=== PATIENT | female | born 1945 | race Caucasian/White ===

== ENCOUNTER 2018-05-31 08:51 | Outpatient (CLI) | payer MEDICARE, OTHER ==
--- NOTE | 2018-06-01 14:10 | Mammography Report ---
Reason: BILAT SCREEN w DULCE Procedure Date: 05/31/2018 Accession Number: [id number] / [id number] Procedure: ROBERTO - Screening Mammo w/Dulce CPT Code: FULL RESULT: EXAM: Screening Mammo w/Dulce DATE: 05/31/2018 9:53 AM CLINICAL HISTORY: 73-year-old female with family history of breast cancer in a sister at age 47 and aunt in her 70s. TECHNIQUE: Bilateral CC and MLO views were obtained. COMPARISON: 11/06/2015, 04/14/2011. FINDINGS: The breasts demonstrate scattered fibroglandular densities bilaterally. 2 cm from the left nipple in the 11:00 position is a 8 mm mass with associated microcalcifications which requires additional imaging views including spot magnification and ultrasound of the left breast. No suspicious masses, clustered microcalcifications, or regions of architectural distortion are identified. IMPRESSION: Incomplete examination RECOMMENDATION: Additional evaluation as above. BIRADS CATEGORY 2: Benign findings STANDARD QUALIFYING STATEMENTS: 1. This examination was not reviewed with the aid of Computer-Aided Detection (CAD). 2. A negative or benign imaging report should not delay biopsy if clinically suspicious findings are present. Consider surgical consultation if warrented. More than 5% of cancers are not identified by imaging. 3. Dense breasts may obscure an underlying neoplasm. 4. This examination was reviewed with the aid of 3D breast imaging (tomosynthesis).
== END 2018-05-31 08:52 | disposition home or self-care (01) ==
LOC: DI 08:51
PROVIDERS: ATTEND Internal Medicine
DX: Z12.31 Encounter for screening mammogram for malignant neoplasm of breast (principal); Z80.3 Family history of malignant neoplasm of breast
CPT/HCPCS: 77063; 77067

== ENCOUNTER 2018-06-20 08:39 | Outpatient (CLI) | payer MEDICARE, OTHER ==
--- NOTE | 2018-06-20 10:17 | Ultrasound Report ---
Reason: ABNORMAL MAMMO LT BREAST Procedure Date: 06/20/2018 Accession Number: [id number] / [id number] Procedure: US - Breast Unilateral Limited CPT Code: FULL RESULT: EXAM: Diag Special Views Dig LT, Breast Unilateral Limited DATE: 06/20/2018 9:09 AM CLINICAL HISTORY: Follow-up abnormal mammogram left breast. ADDITIONAL VIEWS LEFT BREAST TECHNIQUE: Additional true lateral and magnification views left breast. COMPARISON: 05/31/2018, 11/06/2015 and 04/14/2011 FINDINGS: The density described on the prior mammogram report persists on additional views. No definite calcifications are seen. TARGETED LEFT BREAST ULTRASOUND TECHNIQUE: Real-time scanning by the maintenance construction helper of the left breast upper outer quadrant periareolar region with saved static images reviewed. FINDINGS: Corresponding to the mammographic abnormality is a 5 x 6 x 7 mm solid complex vascular mass in the 1:00 position 2 cm from the nipple. IMPRESSION: Suspicious abnormality. RECOMMENDATION: Ultrasound-guided core biopsy left breast. BIRADS CATEGORY 4: Suspicious Results communicated to Dr. Bonilla 10:05 AM 06/20/2018. STANDARD QUALIFYING STATEMENTS: 1. This examination was reviewed with the aid of Computer-Aided Detection (CAD). 2. A negative or benign imaging report should not delay biopsy if clinically suspicious findings are present. Consider surgical consultation if warrented. More than 5% of cancers are not identified by imaging. 3. Dense breasts may obscure an underlying neoplasm.
== END 2018-06-20 08:40 | disposition home or self-care (01) ==
LOC: DI 08:39
PROVIDERS: ATTEND Internal Medicine
DX: N63.21 Unspecified lump in the left breast, upper outer quadrant (principal)
CPT/HCPCS: 76642

== ENCOUNTER 2018-06-29 12:12 | Outpatient (CLI) | payer MEDICARE, OTHER ==
[2018-06-29] MEDS ORDERED: BUFFERED LIDOCAINE 10 ML SYRINGE IU ONE (14:19)
[2018-06-29] MEDS ORDERED: BUPIVACAINE 0.5%-EPI 1:200000 PF 10 ML VIAL SUBQ ONE (14:24)
--- NOTE | 2018-06-29 15:25 | Ultrasound Report ---
Reason: ABN MAMMO - LEFT BREAST NODULE Procedure Date: 06/29/2018 Accession Number: [id number] / [id number] Procedure: US - Biopsy Breast Core CPT Code: FULL RESULT: PROCEDURE: Ultrasound-guided needle biopsy left breast mass. CLINICAL DATA: Targeted mass measuring 0.7 cm with irregular margins in the 1 o'clock axis of the left breast. Informed consent was obtained. Using standard aseptic technique, both 1% buffered lidocaine and Sensorcaine were injected into the left breast for local anesthesia. A small shari was made in the skin with a #11 blade. A 12-gauge [employer] vacuum-assisted device was used to obtain 4 specimens. A specialized biopsy marker clip was placed into the biopsy cavity under ultrasound guidance. The patient was taken to separate mammography machine and a two-view digital mammography was performed to verify the clip placement and any complications. The mammography showed concordant clip placement. The wound was dressed and ice applied. The patient was observed for approximately 15 minutes, then was discharged from diagnostic imaging Department in good condition following instructions on wound care and obtaining biopsy results. The patient is scheduled to receive the biopsy results from the referring physician. The tissue was sent for histologic analysis. IMPRESSION: Ultrasound-guided biopsy of the left breast. AN ADDENDUM WILL BE MADE TO THIS REPORT WHEN PATHOLOGY IS REVIEWED TO ESTABLISH CONCORDANCE.
== END 2018-06-29 12:13 | disposition home or self-care (01) ==
LOC: DI 12:12
PROVIDERS: ATTEND Internal Medicine
DX: C50.412 Malignant neoplasm of upper-outer quadrant of left female breast (principal); Z17.0 Estrogen receptor positive status [ER+]
CPT/HCPCS: 19083

== ENCOUNTER 2018-07-31 10:24 | Outpatient (CLI) | payer MEDICARE, OTHER ==
[2018-07-31] MEDS ORDERED: GADOBUTROL 10 MMOL/10 ML VIAL ONE (11:02)
[2018-07-31] MEDS ORDERED: GADOBUTROL 10 MMOL/10 ML VIAL IVP ONE (12:23)
--- NOTE | 2018-07-31 13:15 | XRAY Report ---
Reason: ELEVATED BLOOD-PRESSURE READING, W/O DIAGNOSIS OF Procedure Date: 07/31/2018 Accession Number: [id number] / [id number] Procedure: XR - Chest 2 View X-Ray CPT Code: 85345 FULL RESULT: EXAM: CHEST RADIOGRAPHY EXAM DATE: 07/31/2018 10:35 AM. CLINICAL HISTORY: Elevated blood-pressure reading, w/o diagnosis of. COMPARISON: None. TECHNIQUE: 2 views. FINDINGS: Lungs/Pleura: No focal opacities evident. No pleural effusion. No pneumothorax. Normal volumes. Mediastinum: Heart and mediastinal contours are unremarkable. Other: None. IMPRESSION: No acute cardiopulmonary abnormality. RADIA
--- NOTE | 2018-08-03 09:02 | MRI Report ---
Reason: BREAST CANCER Procedure Date: 07/31/2018 Accession Number: [id number] / [id number] Procedure: MRI - Breast Bilateral W/WO Contrast CPT Code: FULL RESULT: EXAM: Breast Bilateral W/WO Contrast DATE: 07/31/2018 12:27 PM CLINICAL HISTORY: Breast cancer diagnosed by biopsy. Examination purposes for staging and resection planning. TECHNIQUE: Using a dedicated breast coil, axial precontrast STIR, T1, dynamic postcontrast axial 3-D images, axial 3-D high resolution images, and postcontrast diffusion weighted images were obtained. 8.5 mL GADAVIST gadolinium-based contrast was administered intravenously. COMPARISON: Previous mammograms and ultrasound exams of the breast dating back to 11/06/2015. FINDINGS: In the region of the known cancer is a small focus of artifact likely related to the biopsy clip. The area of asymmetric enhancement in this region measures 2.9 cm AP by 1.5 cm transverse and extends for 3.5 cm in craniocaudal dimension with the patient in the prone position and breasts oriented by gravity. The biopsy cavity with masslike enhancement resides 0.9 cm caudal to the clip and the epicenter of asymmetric nodular regional enhancement lies approximately 3 cm caudal to the clip. No definitely abnormal-appearing lymph nodes are identified. IMPRESSION: Left breast cancer with suspicious asymmetric enhancement of surrounding glandular parenchyma as described. RECOMMENDATION: Surgical excision to encompass the region described in detail above. BIRADS: 6 known malignancy. Comment: Breast MRI is a highly sensitive examination, and has a cancer detection threshold down to approximately 5 mm; however, it only has moderate specificity. Normal-appearing lymph nodes may contain microscopic tumor. Due to prone positioning, the described location of findings may differ from other modalities.
== END 2018-07-31 10:25 | disposition home or self-care (01) ==
LOC: DI 10:24
PROVIDERS: ATTEND Internal Medicine Gastroenterology
DX: C50.912 Malignant neoplasm of unspecified site of left female breast (principal); R03.0 Elevated blood-pressure reading, without diagnosis of hypertension; R94.31 Abnormal electrocardiogram [ECG] [EKG]
CPT/HCPCS: 71046; 93005; A9585; C8908; 77059

== ENCOUNTER 2018-08-14 09:48 | Day surgery (SDC) | payer MEDICARE, OTHER ==
[2018-08-14] MEDS ORDERED: ceFAZolin 2 GM/50 ML 0 GM/0 ML BAG IV ONE (09:55)
[2018-08-14 10:19] VITALS: BP 153/87
[2018-08-14] MEDS ORDERED: LACTATED RINGERS 1,000 ML IV ONE (10:30)
--- NOTE | 2018-08-14 10:41 | ANESTHESIA ---
Pre-Anesthesia VS, & Labs - Diagnosis Breast CA - Procedure L sent. node dissection/L breast lumpectomy Vital Signs: Temp Pulse Resp BP Pulse Ox 36.2 C L 71 16 153/87 H 98 08/14/18 10:16 08/14/18 10:16 08/14/18 10:16 08/14/18 10:16 08/14/18 10:16 Last Vital Signs Temp 36.2 C L 08/14/18 10:16 Pulse 71 08/14/18 10:16 Resp 16 08/14/18 10:16 BP 153/87 H 08/14/18 10:16 Pulse Ox 98 08/14/18 10:16 Height 5 ft 8 in Weight (kg) 79 kg Body Mass Index 26.9 Height 5 ft 8 in Weight (kg) 79 kg Body Mass Index 26.9 - Is Patient ?: No - Lab Results Lab results reviewed: Yes Home Medications and Allergies Home Medications: Ambulatory Orders Amlodipine Besylate [Norvasc] 2.5 mg PO DAILY 08/11/18 Amlodipine Besylate [Norvasc] 2.5 mg PO DAILY 08/11/18 Allergies/Adverse Reactions: Allergies Allergy/AdvReac Type Severity Reaction Status Date / Time latex Allergy Rash Verified 08/01/18 13:10 Sulfa (Sulfonamide Allergy Rash Verified 08/01/18 13:10 Antibiotics) Anes History & Medical History - Medical History Cardiovascular: reports: None Pulmonary: reports: None Gastrointestinal: reports: None Urinary: reports: None Neuro: reports: None Musculoskeletal: reports: None Endocrine/Autoimmune: reports: None Blood Disorders: reports: None Skin: reports: None Smoking Status: Never smoker - Surgical History General: Other Eyes Ears Nose Throat (EENT): Tonsil/Adenoidectomy Plan Anesthesia Type: General (case cancelled/delayed d/t finding new lesion on MRI r equiring biopsyprior to surgery) Consent for Procedure(s) Verified and Reviewed: Yes Code Status: Attempt Resuscitation ASA classification: 3-Severe systemic disease Is this case an emergency?: No
--- NOTE | 2018-08-14 13:11 | PROVIDER PROGRESS NOTE ---
Subjective - Prog Note Date Prog Note Date: 08/14/18 Prog Note Time: 13:08 - Subjective Pt reports feeling: No change Objective - Vital Signs/Intake & Output Reviewed Vital Signs: Yes Vital Signs: Vital Signs x48h Temp Pulse Resp BP Pulse Ox 08/14/18 10:16 36.2 C L 71 16 153/87 H 98 - Objective General Appearance: positive: No acute distress, Alert - Diagnostic Imaging Diagnostic Imaging Results: positive: Final report reviewed, Discussed with radiologist Diagnostic Imaging Comments: During the pre procedural review of the MRI by Dr. Floyd Bernard, radiologist, he felt that the imaging revealed two distinct lesions rather than one lesion, and that the new, second lesion should be biopsied before proceeding with definitive surgical therapy. If the second lesion turns out to be malignant, then a multifocal malignancy would be present, which would require further discussion regarding possible mastectomy as a preferred modality of surgical therapy. This was discussed with the patient, who is in agreement with postponing the surgery and proceeding with image guided biopsy of the second lesion. Assessment/Plan - Problem List (1) Breast cancer Impression: presenting as abnormal mammogram; Rec: definitive surgery is pending evaluation of new, second lesion seen today on MRI. Qualifiers: Breast location: upper outer quadrant of breast Estrogen receptor status: positive Patient sex: female Laterality: left Qualified Code(s): C50.412 - Malignant neoplasm of upper-outer quadrant of left female breast; Z17.0 - Estrogen receptor positive status [ER+] (2) Abnormal MRI, breast Impression: New finding; unclear etiology; if cancer will like change surgical approach. Plan image guided biopsy of this second lesion, then f/u in office and revise surgical plans as appropriate. Discussed with patient who agrees.
[2018-08-14] MEDS ORDERED: BUFFERED LIDOCAINE 10 ML SYRINGE IU ONE (17:06)
--- NOTE | 2018-08-14 17:20 | Ultrasound Report ---
Reason: biopsy new abnormality noted on MRI left breast Procedure Date: 08/14/2018 Accession Number: [id number] / [id number] Procedure: US - Biopsy Breast Core CPT Code: FULL RESULT: EXAM: Biopsy Breast Core DATE: 08/14/2018 4:57 PM CLINICAL HISTORY: Biopsy abnormality noted on MRI left breast with retrospective mammographic correlate. Patient was initially scheduled for wire localization procedure. Per standard protocol, preprocedural imaging was reviewed. Review of the MRI was remarkable for biopsy-proven malignancy at 1:00 left breast and an additional 8 mm enhancing mass in the 3:00 breast, 4 cm from nipple and 2.5 cm distant from the biopsy-proven malignancy. Imaging and localization options were discussed with Dr. Magdiel Huang, who then discussed with the patient. After discussion, it was decided to pursue a second core needle biopsy at 3:00 rather than proceed with the planned needle localization. TECHNIQUE: Informed consent was obtained. Preprocedural scanning was performed of the left breast 3:00 4 cm from nipple demonstrating sonographic correlate to MRI enhancement/retrospective mammographic correlate measuring 8 mm in size (hypoechoic, irregular, indistinct and angular margins, mildly hypervascular). Skin site was prepped and draped in usual sterile fashion. Skin and deeper tissues were anesthetized with 10 cc of lidocaine. A small dermatotomy was made in the skin and 13-gauge guiding coaxial needle was advanced into position. Through this outer guide, a 14-gauge core biopsy system was utilized to obtain 3 core biopsies with each pass confirmed through the sonographic abnormality. A top-hat shaped clip was placed at the biopsy site. Instruments were removed and hemostasis was achieved. Site was sterilely dressed and bandaged. Postprocedural mammogram shows the clip to be in expected position in the 3:00 breast and the new top-hat clip is is 28 mm from the biopsy-proven malignancy at 1:00, marked with a barrel shaped clip. COMPARISON: MRI breast 07/31/2018 and mammograms and ultrasounds dating back to 04/14/2011. IMPRESSION: Successful ultrasound-guided biopsy of 8 mm mass 3:00, 4 cm from nipple left breast. Final recommendations are pending results of this histology.
--- NOTE | 2018-08-15 06:58 | Mammography Report ---
Reason: POST BIOPSY CLIP FILMS Procedure Date: 08/14/2018 Accession Number: [id number] / [id number] Procedure: ROBERTO - Diag Special Views Dig LT CPT Code: FULL RESULT: EXAM: Biopsy Breast Core DATE: 08/14/2018 4:57 PM CLINICAL HISTORY: Biopsy abnormality noted on MRI left breast with retrospective mammographic correlate. Patient was initially scheduled for wire localization procedure. Per standard protocol, preprocedural imaging was reviewed. Review of the MRI was remarkable for biopsy-proven malignancy at 1:00 left breast and an additional 8 mm enhancing mass in the 3:00 breast, 4 cm from nipple and 2.5 cm distant from the biopsy-proven malignancy. Imaging and localization options were discussed with Dr. Magdiel Huang, who then discussed with the patient. After discussion, it was decided to pursue a second core needle biopsy at 3:00 rather than proceed with the planned needle localization. TECHNIQUE: Informed consent was obtained. Preprocedural scanning was performed of the left breast 3:00 4 cm from nipple demonstrating sonographic correlate to MRI enhancement/retrospective mammographic correlate measuring 8 mm in size (hypoechoic, irregular, indistinct and angular margins, mildly hypervascular). Skin site was prepped and draped in usual sterile fashion. Skin and deeper tissues were anesthetized with 10 cc of lidocaine. A small dermatotomy was made in the skin and 13-gauge guiding coaxial needle was advanced into position. Through this outer guide, a 14-gauge core biopsy system was utilized to obtain 3 core biopsies with each pass confirmed through the sonographic abnormality. A top-hat shaped clip was placed at the biopsy site. Instruments were removed and hemostasis was achieved. Site was sterilely dressed and bandaged. Postprocedural mammogram shows the clip to be in expected position in the 3:00 breast and the new top-hat clip is is 28 mm from the biopsy-proven malignancy at 1:00, marked with a barrel shaped clip. COMPARISON: MRI breast 07/31/2018 and mammograms and ultrasounds dating back to 04/14/2011. IMPRESSION: Successful ultrasound-guided biopsy of 8 mm mass 3:00, 4 cm from nipple left breast. Final recommendations are pending results of this histology
== END 2018-08-14 09:49 | disposition home or self-care (01) ==
LOC: SDS 09:48
PROVIDERS: ATTEND Internal Medicine Gastroenterology
PROC: 0HBU3ZX Excision of Left Breast, Percutaneous Approach, Diagnostic (ICD-10-PCS; principal; 2018-08-14)
DX: C50.412 Malignant neoplasm of upper-outer quadrant of left female breast (principal); Z17.0 Estrogen receptor positive status [ER+]; Z80.3 Family history of malignant neoplasm of breast; Z78.0 Asymptomatic menopausal state
CPT/HCPCS: 19083; 77065; J7120

== ENCOUNTER 2018-09-11 08:24 | Day surgery (SDC) | payer MEDICARE, OTHER ==
[2018-09-11] MEDS ORDERED: LACTATED RINGERS 1,000 ML IV ONE ×2 (09:00→15:58)
[2018-09-11] MEDS ORDERED: SODIUM CHLORIDE FLUSH 0.9% 10 ML SYRINGE ONE (09:08)
--- NOTE | 2018-09-11 09:35 | ANESTHESIA ---
Pre-Anesthesia VS, & Labs - Is Patient ?: No <Jose A Russell - Last Filed: 09/11/18 13:41> - NPO >8 hours, Other (Water at 0630) - Is Patient ?: No - Lab Results Lab results reviewed: Yes <Black Moise - Last Filed: 09/11/18 15:03> - Diagnosis L Breast CA, DCIS (Jose A Russell) L Breast CA, DCIS (Black Moise) - Procedure L axillary sentinel node biopsy, L breast lumpectomy(x2) following needle loc. (Jose A Russell) L axillary sentinel node biopsy, L breast lumpectomy(x2) following needle loc. (Black Moise) Vital Signs: Temp Pulse Resp BP Pulse Ox 36.4 C L 69 16 147/82 H 99 09/11/18 08:40 09/11/18 08:40 09/11/18 08:40 09/11/18 08:40 09/11/18 08:40 Last Vital Signs Temp 36.4 C L 09/11/18 08:40 Pulse 69 09/11/18 08:40 Resp 16 09/11/18 08:40 BP 147/82 H 09/11/18 08:40 Pulse Ox 99 09/11/18 08:40 (Jose A Russell) Last Vital Signs Temp 36.4 C L 09/11/18 08:40 Pulse 69 09/11/18 08:40 Resp 16 09/11/18 08:40 BP 147/82 H 09/11/18 08:40 Pulse Ox 99 09/11/18 08:40 (Black Moise) Height 5 ft 7 in Weight (kg) 78.2 kg Body Mass Index 26.6 Home Medications and Allergies <Jose A Russell - Last Filed: 09/11/18 13:41> <Black Moise - Last Filed: 09/11/18 15:03> Amlodipine Besylate [Norvasc] 2.5 mg PO DAILY 08/11/18 Allergies/Adverse Reactions: Allergies Allergy/AdvReac Type Severity Reaction Status Date / Time latex Allergy Rash Verified 08/25/18 16:15 Sulfa (Sulfonamide Allergy Rash Verified 08/25/18 16:15 Antibiotics) Anes History & Medical History - Medical History Cardiovascular: reports: Hypertension Pulmonary: reports: None Gastrointestinal: reports: None Urinary: reports: None Neuro: reports: None Musculoskeletal: reports: None Endocrine/Autoimmune: reports: None Blood Disorders: reports: None Skin: reports: None Smoking Status: Never smoker - Surgical History General: Other Eyes Ears Nose Throat (EENT): Tonsil/Adenoidectomy <Jose A Russell - Last Filed: 09/11/18 13:41> - Anesthetic History Anesthesia Complications: reports: No previous complications Family history of Anesthesia Complications: Denies Family history of Malignant Hyperthermia: Denies - Medical History Psychosocial: reports: No issues indicated <Black Moise - Last Filed: 09/11/18 15:03> Exam General: Alert, Oriented x3 Dental: WNL Mouth Opening: Greater than 4 Fingerbreadths Neck Mobility: Normal Mallampati classification: II Respiratory: Lungs clear Cardiovascular: Regular rate Mental/Cognitive Status: Alert/Oriented X3 Cognitive Status: Within normal limits <Black Moise - Last Filed: 09/11/18 15:03> Plan Anesthesia Type: General Consent for Procedure(s) Verified and Reviewed: Yes Code Status: Attempt Resuscitation ASA classification: 2-Mild systemic disease Is this case an emergency?: No <Black Moise - Last Filed: 09/11/18 15:03>
[2018-09-11] MEDS ORDERED: LIDOCAINE 1%-EPI 1:100000 30 ML MDV ONE (11:11)
[2018-09-11] MEDS ORDERED: BUPIVACAINE 0.5% PF 30 ML VIAL ONE (11:11)
--- NOTE | 2018-09-11 12:18 | Nuclear Medicine Report ---
Reason: L BREAST CANCER Procedure Date: 09/11/2018 Accession Number: [id number] / [id number] Procedure: NM - Lymph Node Scintigraphy CPT Code: FULL RESULT: EXAM: SENTINEL LYMPH NODE RADIOTRACER INJECTION WITH IMAGING EXAM DATE: 09/11/2018 10:39 AM. CLINICAL HISTORY: 73-year-old female with breast cancer, undergoing a preoperative procedure. COMPARISON: None. TECHNIQUE: The injection site of the left breast was cleansed according to protocol. Next, a total of 0.53 mCi Tc-99m filtered sulfur colloid in saline was injected into the same site. After appropriate delay, the patient was imaged according to the protocol. FINDINGS: Images show a single focus of radiotracer accumulation in the left axilla. The patient tolerated the procedure well. IMPRESSION: 1. [place] lymph node injection, without complication. 2. Single focus in the left axilla, compatible with sentinel lymph node. RADIA ADDENDUM: 09/11/18 12:38 On further review, the small focus of radiotracer accumulation is located more medial than expected for the left axilla, in the upper inner quadrant region of the left breast and posterior to the periareolar injection site. This might be an intramammary lymph node or an internal mammary chain lymph node.
[2018-09-11] MEDS ORDERED: BUFFERED LIDOCAINE 10 ML SYRINGE IU ONE (14:02)
[2018-09-11] MEDS ORDERED: LIDOCAINE 1%-EPI 1:100000 20 ML MDV SUBQ ONE (15:53)
[2018-09-11] MEDS ORDERED: BUPIVACAINE 0.5% PF 30 ML VIAL INFIL ONE (15:56)
[2018-09-11] MEDS ORDERED: ACETAMINOPHEN 1,000 MG/100 ML 100 ML IV ONE (16:33)
[2018-09-11] MEDS ORDERED: fentaNYL 100 MCG/2 ML VIAL IVP ONE (16:33)
[2018-09-11] MEDS ORDERED: SODIUM CHLORIDE 0.9% 10 ML VIAL IV ONE (16:33)
[2018-09-11] MEDS ORDERED: DEXAMETHASONE 4 MG/ML VIAL IVP ONE (16:33)
[2018-09-11] MEDS ORDERED: ePHEDrine 50 MG/ML AMP IVP ONE (16:33)
[2018-09-11] MEDS ORDERED: MIDAZOLAM 2 MG/2 ML VIAL IVP ONE (16:33)
[2018-09-11] MEDS ORDERED: ONDANSETRON 4 MG/2 ML VIAL IVP ONE (16:33)
[2018-09-11] MEDS ORDERED: KETOROLAC 30 MG/ML VIAL IVP ONE (16:33)
[2018-09-11] MEDS ORDERED: PROPOFOL 200 MG/20 ML VIAL IVP ONE (16:33)
[2018-09-11] MEDS ORDERED: LIDOCAINE-MPF 2% 5 ML VIAL IM ONE (16:33)
--- NOTE | 2018-09-11 17:11 | Ultrasound Report ---
Reason: evaluate possible sentinel lymph node left breast Procedure Date: 09/11/2018 Accession Number: [id number] / [id number] Procedure: US - Breast Unilateral Limited CPT Code: FULL RESULT: EXAM: Left Breast Unilateral Limited Ultrasound DATE: 09/11/2018 1:32 PM CLINICAL HISTORY: evaluate location sentinel lymph node left breast TECHNIQUE: Real-time scanning by the fashion director with me present. COMPARISON: [place] lymph node examination earlier today. FINDINGS/IMPRESSION: In the area of increased tracer uptake in the 1:00 position left breast 10 cm from the nipple a 1.4 x 0.4 x 1.1 cm lymph node is confirmed. BI-RADS 6: KNOWN MALIGNANCY
[2018-09-11] MEDS ORDERED: ACETAMINOPHEN 325 MG TABLET PO PRN (17:12)
[2018-09-11] MEDS ORDERED: ONDANSETRON 4 MG/2 ML VIAL IVP PRN (17:12)
[2018-09-11] MEDS ORDERED: IBUPROFEN 600 MG TABLET PO PRN (17:12)
--- NOTE | 2018-09-11 17:28 | Mammography Report ---
Reason: LT BREAST CA Procedure Date: 09/11/2018 Accession Number: [id number] / [id number] Procedure: ROBERTO - Wire Loc Addl Lesion CPT Code: 01508 FULL RESULT: EXAM: Wire Localization LT, Wire Loc Addl Lesion DATE: 09/11/2018 11:19 AM CLINICAL HISTORY: LT BREAST CA COMPARISON: 05/31/2018, 06/20/2018, 06/29/2018, 07/31/2018, 08/14/2018 FINDINGS: Informed consent was obtained from the patient. A lateral to medial approach was chosen. The 2 previously placed left upper outer quadrant biopsy clips were targeted. Using sterile technique 1% lidocaine was injected for local anesthesia. A 7 cm modified Kopan's wire was used to localize the barrel-shaped biopsy clip and a 5 cm modified Kopan's wire was used to localize the top hat clip. Postprocedure mammogram demonstrates appropriate positioning of the localization wires with respect to the clips. The patient tolerated the procedure well and left the mammography suite in good condition. Specimen radiograph confirms the presence of both biopsy clips and localization wires. IMPRESSION: Successful mammography guided wire localization of 2 biopsy clips upper outer left breast. BI-RADS 6: Known malignancy
--- NOTE | 2018-09-11 17:28 | Mammography Report ---
Reason: LT BREAST CA Procedure Date: 09/11/2018 Accession Number: [id number] / [id number] Procedure: ROBERTO - Wire Localization LT CPT Code: 84724 FULL RESULT: EXAM: Wire Localization LT, Wire Loc Addl Lesion DATE: 09/11/2018 11:19 AM CLINICAL HISTORY: LT BREAST CA COMPARISON: 05/31/2018, 06/20/2018, 06/29/2018, 07/31/2018, 08/14/2018 FINDINGS: Informed consent was obtained from the patient. A lateral to medial approach was chosen. The 2 previously placed left upper outer quadrant biopsy clips were targeted. Using sterile technique 1% lidocaine was injected for local anesthesia. A 7 cm modified Kopan's wire was used to localize the barrel-shaped biopsy clip and a 5 cm modified Kopan's wire was used to localize the top hat clip. Postprocedure mammogram demonstrates appropriate positioning of the localization wires with respect to the clips. The patient tolerated the procedure well and left the mammography suite in good condition. Specimen radiograph confirms the presence of both biopsy clips and localization wires. IMPRESSION: Successful mammography guided wire localization of 2 biopsy clips upper outer left breast. BI-RADS 6: Known malignancy
--- NOTE | 2018-09-11 17:31 | Mammography Report ---
Reason: LT BREAST CA Procedure Date: 09/11/2018 Accession Number: [id number] / [id number] Procedure: ROBERTO - Breast Specimen Surgical CPT Code: FULL RESULT: EXAM: Breast Specimen Surgical DATE: 09/11/2018 5:16 PM CLINICAL HISTORY: LT BREAST CA COMPARISON: Post wire localization images performed earlier the same day. FINDINGS/ IMPRESSION: The specimen radiograph confirms the presence of both biopsy clips and localization wires within the specimen.
[2018-09-11] MEDS ORDERED: oxyCODONE 5 MG TABLET PO PRN (18:00)
[2018-09-11 18:03] VITALS: BP 130/67
[2018-09-11] MEDS ORDERED: oxyCODONE 5 MG TABLET ONE (18:08)
--- NOTE | 2018-09-12 04:29 | OPERATIVE REPORT ---
DATE OF SERVICE: 09/11/2018 Physician: Magdiel Huang MD PREOPERATIVE DIAGNOSES 1. Invasive ductal carcinoma of the left breast. 2. Ductal carcinoma in situ of the left breast. POSTOPERATIVE DIAGNOSES 1. Invasive ductal carcinoma of the left breast. 2. Ductal carcinoma in situ of the left breast. PROCEDURE 1. Left breast lumpectomy following needle localization x 2. 2. Left axillary sentinel lymph node biopsy. 3. Injection of methylene blue dye for sentinel lymph node mapping and biopsy. SURGEON: Magdiel Huang MD FACS [employer] WORKER: None ANESTHESIA TYPE/PROVIDER: General endotracheal by Jose A Russell CRNA. ESTIMATED BLOOD LOSS: 25 mL COMPLICATIONS: None. FINDINGS: Exploration of the left axilla revealed a solitary, hot, blue 10 mm lymph node in the mid left axilla with a timed count of 17,000. No other hot or blue lymph nodes were identified in the axilla. Specimen mammography confirmed the presence of both mammographic abnormalities, together with the marking clips and the localizing wires within the operative specimen. Grossly, the exposed visible breast tissue had a normal appearance. INDICATIONS: Patient is a 73-year-old woman who was noted to have an abnormal left mammogram with a cluster of microcalcifications in the upper outer quadrant, concerning for possible malignancy. Image-guided biopsy confirmed invasive ductal carcinoma, usual type, HR positive, HER-2/patricia negative. Subsequent evaluation of the MRI showed a second lesion. Image-guided biopsy of the second lesion revealed DCIS. Since both lesions were thought to be within 2.5 cm of each other and the lesions were thought amenable to breast conservation therapy and patient was interested in breast conservation therapy, patient was advised to undergo left breast lumpectomy x2 following needle localization and left axillary sentinel lymph node biopsy as part of her breast- conservation therapy. TECHNIQUE: After informed consent and preoperative needle localization x2 and lymphoscintigraphy with identification was thought to be a left axillary sentinel lymph node, patient was taken to the operating room where she was placed under general endotracheal anesthesia. Preoperative preparation also included application of sequential calf compression boots and administration of 2 grams of cefazolin intravenously within an hour of the incision. Her left breast was prepped with alcohol, following which approximately 1 mL of methylene blue was injected in 4 aliquots intradermally around the edges of the nipple- areola complex. This area was then massaged for 5 minutes, following which the left breast and axilla were prepared with ChloraPrep solution and draped in the usual sterile fashion. Using the Idalia counter probe, a location in the mid left axilla was identified overlying the suspected sentinel lymph node. A transverse incision approximately 2 to 2.5 cm in length was made overlying this area and carried down into subcutaneous tissues. Hemostasis achieved with electrocautery and with the LigaSure device. The incision was carried down into the axillary space, where careful dissection identified several blue lymphatic channels, which were followed until a blue lymph node approximately 10 mm in diameter against the chest wall was identified and seen to be radioactive. This lymph node was excised with the LigaSure device. A timed count was obtained, as noted above. The lymph node was sent for pathologic evaluation as sentinel lymph node #1. Interrogation of the axilla with the Idalia counter showed no additional hot areas, and visible exploration in the immediate vicinity of the excised node showed no additional blue lymph nodes. After hemostasis was ensured, the wound was irrigated with saline solution, following which wound closure was accomplished in layers using interrupted 3-0 Vicryl to reapproximate the axillary fascia and 4-0 Monocryl subcuticular skin closure. Attention was then turned towards the lumpectomy. Two localizing wires were seen to exit the breast, one in the 3 o'clock position and the other in the 4 o'clock position. A radial incision was made beginning from the edge of the nipple-areola complex, outward and downward, approximately 5 cm in length in between the 2 exit sites of the wire. Skin flaps were raised circumferentially. The wires were brought out through the incision. It was felt that the lesions were close enough together to be able to be excised in a single specimen, and this was performed using electrocautery to dissect around the suspected location of both lesions with gross margins of at least one centimeter down to the chest wall. The resulting specimen was then oriented using the margin map and then sent for specimen mammography and then pathology. Specimen mammography findings were as noted above. After hemostasis was ensured, the wound was copiously irrigated with saline solution, following which the incision was closed in a single layer with a single layer of 4-0 Monocryl subcuticular skin closure, followed by Dermabond to both surgical sites. Anesthesia was terminated and patient was transferred to the recovery room in satisfactory condition. Sponge and needle counts were correct x2. No drains were used. TD: 09/11/2018 18:00 MELA
== END 2018-09-11 08:25 | disposition home or self-care (01) ==
LOC: DI 08:24
PROVIDERS: ATTEND Internal Medicine Gastroenterology
PROC: 0HBU0ZZ Excision of Left Breast, Open Approach (ICD-10-PCS; principal; 2018-09-11 11:00)
PROC: 07B60ZX Excision of Left Axillary Lymphatic, Open Approach, Diagnostic (ICD-10-PCS; 2018-09-11 11:00)
DX: C50.412 Malignant neoplasm of upper-outer quadrant of left female breast (principal); Z17.0 Estrogen receptor positive status [ER+]; I10 Essential (primary) hypertension
CPT/HCPCS: 19281; 19282; 19301; 38525; 38900; 76098; 76642; 78195; A9270; J0131; J7120

== ENCOUNTER 2018-11-03 12:21 | Outpatient (CLI) | payer MEDICARE, OTHER ==
--- NOTE | 2018-11-03 15:01 | Mammography Report ---
Reason: LT BREAST CA, PRERADIATION MAMMO Procedure Date: 11/03/2018 Accession Number: [id number] / [id number] Procedure: ROBERTO - Diagnostic Dig LT CPT Code: FULL RESULT: EXAM: Diagnostic Dig LT DATE: 11/03/2018 1:33 PM CLINICAL HISTORY: Known left breast cancer status post lumpectomy August 2018. Diagnostic examination prior to initiation of radiation therapy. TECHNIQUE: Left CC and MLO images are obtained. COMPARISON: 09/11/2018 through 04/14/2011. FINDINGS: Left breast demonstrates scattered fibroglandular density. Postsurgical changes are seen in the left breast, expected configuration and probably benign. No suspicious masses, calcifications or architectural distortion is identified. IMPRESSION: Probable benign findings RECOMMENDATION: Recommend diagnostic left breast mammogram in 6 months. Annual screening of the right breast. BIRADS CATEGORY 3 STANDARD QUALIFYING STATEMENTS: 1. This examination was not reviewed with the aid of Computer-Aided Detection (CAD). 2. A negative or benign imaging report should not delay biopsy if clinically suspicious findings are present. Consider surgical consultation if warrented. More than 5% of cancers are not identified by imaging. 3. Dense breasts may obscure an underlying neoplasm. 4. This examination was reviewed with the aid of 3D imaging (tomography).
== END 2018-11-03 12:22 | disposition home or self-care (01) ==
LOC: DI 12:21
PROVIDERS: ATTEND Specialist
DX: C50.412 Malignant neoplasm of upper-outer quadrant of left female breast (principal)

== ENCOUNTER 2019-06-06 09:13 | Outpatient (CLI) | payer MEDICARE, OTHER ==
--- NOTE | 2019-06-06 10:14 | Mammography Report ---
Reason: LT BREAST CA Procedure Date: 06/06/2019 Accession Number: [id number] / [id number] Procedure: ROBERTO - Diagnostic Dig Bilat CPT Code: FULL RESULT: EXAM: Diagnostic Dig Bilat DATE: 06/06/2019 9:43 AM CLINICAL HISTORY: Personal history of treated left breast cancer status post lumpectomy on the left and 2018 for post lumpectomy surveillance. TECHNIQUE: (B) - Bilateral CC and MLO views were obtained. COMPARISON: 11/03/2018 through 04/14/2011 PARENCHYMAL PATTERN: (A) - The breasts demonstrate scattered fibroglandular densities bilaterally. FINDINGS: Right breast: There are no suspicious masses, calcifications or areas of distortion. Left breast: There are stable and expected post lumpectomy changes from the anterior upper outer left breast. No suspicious masses, calcifications or areas of nonoperative distortion. IMPRESSION: Right breast: Negative. BI-RADS Category 1. Recommend annual screening mammography. Left breast: Stable and expected post lumpectomy changes under surveillance. Benign. BI-RADS Category 2. Recommend continuing post lobectomy surveillance protocol with diagnostic mammography in 6 months. RECOMMENDATION: (6MOS) - Recommend 6 month follow-up exam. BI-RADS CATEGORY: (2) - Benign Findings. STANDARD QUALIFYING STATEMENTS: 1. This examination was not reviewed with the aid of Computer-Aided Detection (CAD). 2. A negative or benign imaging report should not preclude biopsy if clinically suspicious findings are present. 3. Dense breasts may obscure an underlying neoplasm. 4. This examination was reviewed with the aid of 3D breast imaging (tomosynthesis).
== END 2019-06-06 09:14 | disposition home or self-care (01) ==
LOC: DI 09:13
PROVIDERS: ATTEND Internal Medicine Hematology & Oncology
DX: Z08 Encounter for follow-up examination after completed treatment for malignant neoplasm (principal); Z85.3 Personal history of malignant neoplasm of breast
CPT/HCPCS: 77066

== ENCOUNTER 2020-07-09 09:12 | Outpatient (CLI) | payer MEDICARE, OTHER ==
--- NOTE | 2020-07-09 17:26 | DEXA Report ---
PROCEDURE: Dexa Spine and/or Hip INDICATIONS: POST MENOPAUSAL TECHNIQUE: Dual energy x-ray absorptiometry (DXA) was performed on a [employer] System. Regions measur ed are the AP Spine, femoral neck, and if needed forearm. COMPARISON: 09/07/2018. FINDINGS: Lumbar Spine: Bone Mineral Density 1.519 g/cm/cm,T score 2.8, normal Left Hip: Bone Mineral Density 1.193 g/cm/cm,T score 1.5, normal Left Femoral Neck: Bone Mineral Density 1.042 g/cm/cm, T score 0.0, normal (T score greater or equal to -1.0: NORMAL) (T score from -1.1 to -2.4: OSTEOPENIA) (T score less than or equal to -2.5 to: OSTEOPOROSIS) Impression: Normal bone marrow density. Bone marrow density has decreased 3% compared to prior examin ation. Patients with diagnosis of osteoporosis or osteopenia should have regular bone mineral density assess ment. For those eligible for Medicare, routine testing is allowed once every 2 years. Testing frequ ency can be increased for patients who have rapidly progressing disease or for those who are receivin g medical therapy to restore bone mass. Reviewed by: Kristina Philip MD, PhD on 07/09/2020 5:24 PM PST Approved by: Kristina Philip MD, PhD on 07/09/2020 5:24 PM PST Station ID: [id number]
== END 2020-07-09 09:13 | disposition home or self-care (01) ==
LOC: DI 09:12
PROVIDERS: ATTEND Internal Medicine Hematology & Oncology
DX: Z78.0 Asymptomatic menopausal state (principal)
CPT/HCPCS: 77080

== ENCOUNTER 2020-12-03 09:00 | Outpatient (CLI) | payer MEDICARE, OTHER ==
--- NOTE | 2020-12-04 12:51 | Mammography Report ---
BILATERAL DIGITAL DIAGNOSTIC MAMMOGRAM 3D/2D: 12/03/2020 CLINICAL: Personal history of left breast cancer. Comparison is made to exams dated: 12/14/2019 mammogram - [facility], 06/06/2019 mammogram, 019 mammogram, 09/01/2018 localization, 08/14/2018 mammogram, and 06/29/2018 mammogram - [facility]. There are scattered fibroglandular elements in both breasts. There is irregular equal density architectural distortion with an indistinct margin in the left breas t at 1 o'clock middle depth. This is not significantly changed and correlates with surgery. There i s a post-surgical scar, skin retraction, thickening, and trabecular thickening associated with the ar chitectural distortion. No other significant masses, calcifications, or other findings are seen in either breast. IMPRESSION: BENIGN The irregular equal density architectural distortion in the left breast is consistent with a post-luisana gical scar and is benign. There is no mammographic evidence of malignancy. A 1 year screening mammogram is recommended. This exam was interpreted at Station ID: [id number]. NOTE: For mammograms, a report in lay terms will be sent to the patient. Approximately 15% of breast malignancies will not be visualized mammographically. In the management of a palpable breast mass, a negative mammogram must not discourage biopsy of a clinically suspicious lesion. Electronically Signed By: Nikhil Tomas M.D. ddp/:12/03/2020 10:17:16 copy to: CHIP NEUMANN M.D., ph: [phone], fax: [phone] ACR BI-RADS Category 2: Benign Finding(s) 3342F PARENCHYMAL PATTERN: (A) - The breast(s) demonstrate(s) scattered fibroglandular densities. BI-RADS CATEGORY: (2) - 2 RECOMMENDATION: (ANNUAL) - Recommend routine annual screening mammography. [id number] 1 year screening LATERALITY: (B)
== END 2020-12-03 09:01 | disposition home or self-care (01) ==
LOC: DI 09:00
PROVIDERS: ATTEND Internal Medicine Hematology & Oncology
DX: C50.412 Malignant neoplasm of upper-outer quadrant of left female breast (principal)

== ENCOUNTER 2021-08-11 14:30 | Outpatient (CLI) | payer MEDICARE, OTHER ==
--- NOTE | 2021-08-12 08:43 | XRAY Report ---
PROCEDURE: Knee 4 View LT INDICATIONS: L KNEE PX TECHNIQUE: 4 views of the left knee(s) were acquired. One view of the right knee. COMPARISON: None. FINDINGS: Bones: Moderate joint space narrowing in the medial compartment. There is tricompartmental osteophyt osis. No fractures or dislocations. No suspicious bony lesions. Soft tissues: No joint effusion. No suspicious soft tissue calcifications. 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 Reviewed by: Omer Lainez MD on 08/12/2021 8:41 AM PST Approved by: Omer Lainez MD on 08/12/2021 8:41 AM PST Station ID: [id number]
== END 2021-08-11 23:59 | disposition home or self-care (01) ==
LOC: DI.N 14:30
PROVIDERS: ATTEND Physician Assistant
DX: M17.12 Unilateral primary osteoarthritis, left knee (principal)

== ENCOUNTER 2022-09-07 10:30 | Outpatient (CLI) | payer MEDICARE, OTHER ==
--- NOTE | 2022-09-07 15:21 | XRAY Report ---
PROCEDURE: Knee 4 View BILAT INDICATIONS: BILAT KNEE PAIN TECHNIQUE: 4 views of the right and left knee(s) were acquired. COMPARISON: 08/11/2021 knee 4 views FINDINGS: Bones: No acute fracture or dislocation. Mild tricompartmental joint space narrowing and spurring of the right knee. Moderate left medial compartment and patellofemoral compartment narrowing and spurri ng. Soft tissues: No joint effusion. No suspicious soft tissue calcifications. Chondrocalcinosis is pr esent IMPRESSION: 1. Mild right and moderate left knee degenerative changes. 2. Chondrocalcinosis is present, nonspecific finding that can be seen in the setting of CPPD, degener ative change, or other etiologies. Reviewed by: Tushar Guaman MD on 09/07/2022 3:20 PM PST Approved by: Tushar Guaman MD on 09/07/2022 3:20 PM PST Station ID: [id number]
== END 2022-09-07 23:59 | disposition home or self-care (01) ==
LOC: DI.WOS 10:30
PROVIDERS: ATTEND Physician Assistant Surgical
DX: M17.0 Bilateral primary osteoarthritis of knee (principal); M11.262 Other chondrocalcinosis, left knee; M11.261 Other chondrocalcinosis, right knee

== ENCOUNTER 2023-01-19 09:55 | Outpatient (CLI) | payer MEDICARE, OTHER ==
--- NOTE | 2023-01-20 09:52 | Mammography Report ---
BILATERAL DIGITAL SCREENING MAMMOGRAM 3D/2D: 01/19/2023 CLINICAL: Routine screening. Personal history of left breast cancer. Comparison is made to exams dated: 01/06/2022 mammogram - [facility], 12/03/2020 mammogram - [facility], 12/14/2019 mammogram - [facility], 06/06/2019 mammogram, 11/03/2018 mammogram, and 09/01/2018 localization - [facility]. There are scattered areas of fibroglandular density in both breasts (category b / 25%-50% glandular t issue). There are benign post operative findings in the left breast. No significant masses, calcifications, or other findings are seen in either breast. There has been no significant interval change. IMPRESSION: BENIGN There is no mammographic evidence of malignancy. A 1 year screening mammogram is recommended. This exam was interpreted at Station ID: [id number]. NOTE: For mammograms, a report in lay terms will be sent to the patient. Approximately 15% of breast malignancies will not be visualized mammographically. In the management of a palpable breast mass, a negative mammogram must not discourage biopsy of a clinically suspicious lesion. Electronically Signed By: Lemuel Butt M.D. aty/penrad:01/19/2023 13:16:30 copy to: CHIP NEUMANN M.D., ph: [phone], fax: [phone] letter sent: No_Letter ACR BI-RADS Category 2: Benign Finding(s) 3342F PARENCHYMAL PATTERN: (A) - The breast(s) demonstrate(s) scattered fibroglandular densities. BI-RADS CATEGORY: (2) - 2 Mammogram [id number] 1 year screening LATERALITY: (B)
== END 2023-01-19 09:56 | disposition home or self-care (01) ==
LOC: DI 09:55
DX: Z12.31 Encounter for screening mammogram for malignant neoplasm of breast (principal); Z85.3 Personal history of malignant neoplasm of breast

== ENCOUNTER 2023-06-06 08:00 | Outpatient (CLI) | payer MEDICARE, OTHER ==
--- NOTE | 2023-06-06 13:46 | XRAY Report ---
PROCEDURE: Knee 4 View BILAT INDICATIONS: BILAT KNEE PAIN TECHNIQUE: 4 views of the right and left knee(s) were acquired. COMPARISON: 09/07/2022. FINDINGS: Bones: No fractures or dislocations. No suspicious bony lesions. Mild tricompartmental degenerative changes of the right knee with mild medial and lateral joint space narrowing. Small tricompartmental osteophytes. Chondrocalcinosis in the medial and lateral joint spa ce. Mild tricompartmental degenerative changes of the left knee with severe medial joint space narrowing. Large osteophytes of the left knee medially. Chondrocalcinosis in the medial and lateral joint space . Soft tissues: No knee joint effusion. No suspicious soft tissue calcifications or masses. Vasculatu re has atherosclerotic calcifications. IMPRESSION: 1. Tricompartmental degenerative changes of the right knee consistent with mild osteoarthritis. 2. Tricompartmental degenerative changes of the left knee with severe medial joint space tenderness c onsistent with moderate osteoarthritis. 3. No acute abnormality. 4. Chondrocalcinosis. Reviewed by: Donell Pedroza on 06/06/2023 1:45 PM PDT Approved by: Donell Pedroza on 06/06/2023 1:45 PM PDT Station ID: [id number]
== END 2023-06-06 23:59 | disposition home or self-care (01) ==
LOC: DI.WOS 08:00
PROVIDERS: ATTEND Physician Assistant Surgical
DX: M17.0 Bilateral primary osteoarthritis of knee (principal); M11.262 Other chondrocalcinosis, left knee; M11.261 Other chondrocalcinosis, right knee

== ENCOUNTER 2024-01-04 09:13 | Outpatient (CLI) | payer MEDICARE, OTHER ==
--- NOTE | 2024-01-05 09:14 | Mammography Report ---
BILATERAL DIGITAL SCREENING MAMMOGRAM 3D/2D: 01/04/2024 CLINICAL: Routine screening. Personal history of left breast cancer. Comparison is made to exams dated: 01/19/2023 mammogram - [facility], 01/06/2022 [facility], and 12/03/2020 mammogram - [facility]. There are scattered areas of fibroglandular density in both breasts (category b / 25%-50% glandular t issue). There are benign post operative findings in the left breast. No significant masses, calcifications, or other findings are seen in either breast. There has been no significant interval change. IMPRESSION: BENIGN There is no mammographic evidence of malignancy. A 1 year screening mammogram is recommended. This exam was interpreted at Station ID: [id number]. NOTE: For mammograms, a report in lay terms will be sent to the patient. Approximately 15% of breast malignancies will not be visualized mammographically. In the management of a palpable breast mass, a negative mammogram must not discourage biopsy of a clinically suspicious lesion. Electronically Signed By: Tushar copeland/jaren:01/04/2024 09:43:47 copy to: CHIP NEUMANN M.D., ph: [phone], fax: [phone] letter sent: No_Letter ACR BI-RADS Category 2: Benign Finding(s) 3342F PARENCHYMAL PATTERN: (A) - The breast(s) demonstrate(s) scattered fibroglandular densities. BI-RADS CATEGORY: (2) - 2 RECOMMENDATION: (ANNUAL) - Recommend routine annual screening mammography. [id number] 1 year screening LATERALITY: (B)
== END 2024-01-04 09:14 | disposition home or self-care (01) ==
LOC: DI 09:13
DX: Z12.31 Encounter for screening mammogram for malignant neoplasm of breast (principal); Z85.3 Personal history of malignant neoplasm of breast; R92.323 Mammographic fibroglandular density, bilateral breasts